=== PATIENT | female | born 1950 ===

== ENCOUNTER 2017-06-01 11:22 | Day surgery (SDC) | payer MEDICARE ==
[~2017-06-01 11:22] MED LIST: Buffered Lidocaine 0.9% SYRIN* 5 ML/SYR SYRINGE INTRADERM ONE
[2017-06-01] MEDS ORDERED: Buffered Lidocaine 0.9% SYRIN* 5 ML/SYR SYRINGE ONE (11:39)
[2017-06-01] MEDS ORDERED: Midazolam* 1 MG/ML 2 ML VIAL (2 MG) ONE ×4 (14:11→14:35)
[2017-06-01] MEDS ORDERED: KETAMINE HCL* 50 MG/ML 10 ML VIAL ONE (14:33)
[2017-06-01] MEDS ORDERED: Naloxone* 0.4 MG/ML 1 ML VIAL IV PRN (15:31)
[2017-06-01 15:43] VITALS: BP 138/76
--- NOTE | 2017-06-02 15:04 | PRO ---
CC: Dr. Billy; Dr. Theodora Rodriguez GASTROENTEROLOGY OPERATIVE REPORT: DATE OF PROCEDURE: 06/01/17. OPERATIVE PROCEDURE: Colonoscopy to terminal ileum. SURGEON: Theodora Rodriguez MD ANESTHESIA: MAC. HISTORY OF PRESENT ILLNESS: Karie is a pleasant 66-year-old female who presents today with a positive Cologuard. She denies previous colonoscopy and personal gastrointestinal complaints. There is no family history of colon cancer. PREOPERATIVE DIAGNOSES: 1. Positive Cologuard. 2. Initial colonoscopy. POSTOPERATIVE DIAGNOSES: 1. Normal-appearing cecum, ascending colon, transverse colon, descending colon , sigmoid. 2. Small nonbleeding internal hemorrhoids on retroflexion. 3. Fair colonoscopy prep, polyp less than 5 mm may have been missed in the right side of the colon. RECOMMENDATIONS: 1. Recommend the patient to have a repeat colonoscopy in 7 years due to a fair colonoscopy preparation. DESCRIPTION OF PROCEDURE: Colonoscopy was explained in detail to the patient. The risks, benefits, complications, alternatives, and possibility of missed lesions were explained and understood. Complications included but were not limited to reaction to anesthesia, aspiration, increased risk of bleeding and perforation. All questions were answered. The patient demonstrated understanding of the conversation and informed consent was obtained. Next, the patient was brought to the endoscopy suite, placed in the left lateral recumbent position where blood pressure, cardiac, and oxygen monitors were applied. The patient was found to be a fit candidate for moderate anesthesia. After adequate IV sedation was achieved, a digital rectal exam was performed, which revealed normal sphincter tone. No palpable masses were appreciated. Next, a standard pediatric Olympus colonoscope was inserted throughout the rectum, maneuvered all the way to the cecal base where the ileocecal valve and appendiceal orifice were identified and photographed. Next, the colonoscope was withdrawn in the fashion that allowed adequate visualization of the bowel. The patient overall had a normal vascular and mucosal pattern. The patient's colonoscopy preparation was overall fair. There was aggressive irrigation and suctioning that was performed in order to adequately visualize the mucosa. There were significant amount of seeds present in the cecum. No gross masses were seen throughout the colon. The cecum , ascending colon, transverse colon, descending colon, sigmoid colon were normal appearing. Entry into the rectum on retroflexion revealed small nonbleeding internal hemorrhoids. Air was then removed from the patient. Colonoscopy was removed from the patient. The patient tolerated procedure well. There were no immediate complications. After a period of observation, the patient was discharged home in stable condition with a driver engineer. Thank you, Dr. Billy, for allowing us to participate in the care of your patient. If you should have any further questions or concerns, please do not hesitate to contact us. [id number] #: [id number] [place]
== END 2017-06-01 15:45 | disposition home or self-care (01) ==
LOC: OR 11:22
PROVIDERS: ATTEND Internal Medicine Gastroenterology
DX: R19.5 Other fecal abnormalities (principal); K64.8 Other hemorrhoids; R53.83 Other fatigue; I10 Essential (primary) hypertension; E78.00 Pure hypercholesterolemia, unspecified; E03.9 Hypothyroidism, unspecified; Z85.3 Personal history of malignant neoplasm of breast; Z87.891 Personal history of nicotine dependence
CPT/HCPCS: J2250